=== PATIENT | male | born 1970 | race Caucasian/White ===

== ENCOUNTER 2023-09-05 22:16 | Emergency (ER) | payer SELFPAY ==
[2023-09-05 22:28] VITALS: RESP 18; BMI 27.3
[2023-09-06] MEDS ORDERED: ACETAMINOPHEN 500 MG TABLET (FP) PO ONE (01:05)
[2023-09-06] MEDS ORDERED: ACETAMINOPHEN 500 MG TABLET (FP) ONE (01:06)
[2023-09-06 02:06] VITALS: TEMP 99.1
[2023-09-06 02:07] VITALS: BP 109/64; PULSE 92
== END 2023-09-06 02:30 | disposition home or self-care (01) ==
LOC: JERFT 22:16 → JER 22:16 → JERFT 09-06 02:30
DX: R68.83 Chills (without fever) (principal); M79.10 Myalgia, unspecified site; R51.9 Headache, unspecified; R09.81 Nasal congestion; J00 Acute nasopharyngitis [common cold]; Z20.822 Contact with and (suspected) exposure to COVID-19
CPT/HCPCS: 0241U-QW; 99283-25

== ENCOUNTER 2023-09-06 14:48 | Inpatient (IN) | payer OTHER ==
[2023-09-06 14:57] VITALS: BMI 23.9
[2023-09-06] MEDS ORDERED: ACETAMINOPHEN 1000 MG/100 ML BAG IVPB ONE (15:41)
[2023-09-06] MEDS ORDERED: VANCOMYCIN 1,000 MG in DEXTROSE 5%-WATER - 250 ML IVPB ONE (15:49)
[2023-09-06] MEDS ORDERED: PIPERACILLIN/TAZOB 4.5 GM 4.5 GM in DEXTROSE 5%-WATER - 100 ML IVPB ONE (15:49)
[2023-09-06] MEDS ORDERED: ACETAMINOPHEN INJECTION 100 ML IVPB ONE (15:55)
[2023-09-06] MEDS ORDERED: SODIUM CHLORIDE 0.9% 500 ML INFUS.BAG IV ONE ×2 (16:04→20:16)
[2023-09-06] MEDS ORDERED: PIPERACILLIN/TAZOB 4.5 GM 4.5 GM/100 ML BAG IVPB ONE (16:08)
[2023-09-06 16:11] LABS: BASO % 0.2 % (0-2.0); EOS % 0.2 % (0-4.5); HEMATOCRIT 45.5 % (35.4-49); HEMOGLOBIN 15.4 GM/dL (11.7-16.9); LYMPH % 13.2 % (8-40); MCH 30.8 pg (25.7-33.7); MCHC 33.9 g/dl (32.0-35.9); MEAN CELL VOLUME 90.7 fl (80-96); MEAN PLT VOLUME 7.1 fl (7.5-11.1); MONO % 0.7 % (3.8-10.2); NEUT % 85.7 % (42.8-82.8); PLATELET COUNT 178 10^3/uL (134-434); RBC 5.01 M/mm3 (4.00-5.60); RDW 13.5 % (11.9-15.9)
[2023-09-06 16:12] LABS: VENOUS BASE EXCESS -1.5 mmol/L (-2-2); VENOUS O2 SATURATION 63.9 % (70-80); VENOUS PCO2 42.2 mmHg (38-52); VENOUS PH 7.37 (7.310-7.410)
[2023-09-06 16:19] LABS: INR 1.26 (0.83-1.09); PROTHROMBIN TIME (PATIENT) 14.6 SEC (9.7-13.0)
[2023-09-06 16:21] LABS: ACTIVATED PTT 25.8 SECONDS (25.2-36.5)
[2023-09-06 16:29] LABS: CHLORIDE 102 mmol/L (98-107); POTASSIUM 3.6 mmol/L (3.5-5.1); SODIUM 138 mmol/L (136-145)
[2023-09-06 16:31] LABS: CALCIUM 9.5 mg/dL (8.5-10.1)
[2023-09-06 16:32] LABS: ALBUMIN 3.8 g/dl (3.4-5.0); ANION GAP 11 mmol/L (4-13); BLOOD UREA NITROGEN 16.2 mg/dL (7-18); CO2 25 mmol/L (21-32); GLUCOSE,RANDOM 120 mg/dL (74-106)
[2023-09-06 16:35] LABS: CREATININE 1.8 mg/dL (0.55-1.3); SGOT/AST 70 U/L (15-37); SGPT/ALT 65 U/L (13-61)
[2023-09-06 16:37] LABS: BILIRUBIN,TOTAL 1.5 mg/dL (0.2-1); TOT PROT 8.2 g/dl (6.4-8.2)
[2023-09-06 16:38] LABS: ALK PHOS 135 U/L (45-117)
[2023-09-06 16:40] LABS: N-TERMINAL BNP 193.1 pg/ml (5-125)
[2023-09-06 16:42] LABS: LACTIC ACID 4.8 mmol/L (0.4-2.0)
[2023-09-06] MEDS ORDERED: VANCOMYCIN 1 GRAM (PRE-DOCKED) 1,000 MG/250 ML BAG IVPB ONE (16:48)
[2023-09-06 19:10] LABS: URINE APPEARANCE CLEAR; URINE BILIRUBIN NEGATIVE (NEGATIVE); URINE COLOR YELLOW; URINE GLUCOSE (UA) NEGATIVE (NEGATIVE); URINE KETONE NEGATIVE (NEGATIVE); URINE LEUK ESTERASE NEGATIVE (NEGATIVE); URINE NITRITE NEGATIVE (NEGATIVE); URINE PROTEIN TRACE (NEGATIVE)
[2023-09-07] MEDS: SODIUM CHLORIDE 1,000 ML IV SCH ×2 (02:44→11:39)
[2023-09-07] MEDS ORDERED: HEPARIN NA (PORCINE) 5,000 UNITS/ML 1ML VIAL ONE (05:05)
[2023-09-07] MEDS ORDERED: VANCOMYCIN 1 GRAM (PRE-DOCKED) 1,000 MG/250 ML BAG IVPB ONE ×2 (05:05→15:49)
[2023-09-07] MEDS: VANCOMYCIN 1 GRAM (PRE-DOCKED) 1,000 MG/250 ML BAG IVPB SCH ×2 (05:21→19:13)
[2023-09-07] MEDS ORDERED: HEPARIN NA (PORCINE) 5,000 UNITS/ML 1ML VIAL SQ SCH (06:00)
[2023-09-07 07:06] LABS: HEMATOCRIT 36.2 % (35.4-49); HEMOGLOBIN 12.4 GM/dL (11.7-16.9); MCHC 34.3 g/dl (32.0-35.9); MEAN CELL VOLUME 90.3 fl (80-96); MEAN PLT VOLUME 7.6 fl (7.5-11.1); PLATELET COUNT 130 10^3/uL (134-434); RBC 4.01 M/mm3 (4.00-5.60); RDW 13.4 % (11.9-15.9)
[2023-09-07 07:28] LABS: POTASSIUM 3.4 mmol/L (3.5-5.1)
[2023-09-07 07:31] LABS: BLOOD UREA NITROGEN 15.6 mg/dL (7-18)
[2023-09-07 07:35] LABS: CREATININE 0.9 mg/dL (0.55-1.3)
[2023-09-07 07:37] LABS: BILIRUBIN,TOTAL 1.3 mg/dL (0.2-1)
[2023-09-07 07:41] LABS: ALBUMIN 2.8 g/dl (3.4-5.0); CALCIUM 7.7 mg/dL (8.5-10.1); TOT PROT 5.8 g/dl (6.4-8.2)
[2023-09-07 10:13] LABS: BILIRUBIN,DIRECT 0.6 mg/dL (0.0-0.2)
[2023-09-07] MEDS ORDERED: ACETAMINOPHEN 325 MG TABLET (FP) ONE ×2 (11:06→16:57)
[2023-09-07] MEDS: ACETAMINOPHEN 325 MG TABLET (FP) PO PRN ×3 (11:08→21:39)
[2023-09-07 12:34] LABS: HIV INTERPRETATION NEGATIVE (NEGATIVE)
[2023-09-07 16:49] LABS: OPIATES, URI NEGATIVE (NEGATIVE)
[2023-09-07 16:50] LABS: PHENCYCLIDINE,URINE NEGATIVE (NEGATIVE); URINE BARBITURATES NEGATIVE (NEGATIVE)
[2023-09-07 16:51] LABS: METHADONE, UR NEGATIVE (NEGATIVE); URINE BENZODIAZEPINES NEGATIVE (NEGATIVE)
[2023-09-07 17:25] LABS: COCAINE, UR NEGATIVE (NEGATIVE); URINE AMPHETAMINES NEGATIVE (NEGATIVE)
[2023-09-07] MEDS ORDERED: VANCOMYCIN/WATER FOR INJ (PEG) 1,000 MG/200 ML BAG IVPB SCH (19:00)
[2023-09-07] MEDS: ENOXAPARIN NA (PORCINE) 40 MG/0.4 ML DISP.SYRIN SQ SCH (19:13)
[2023-09-07] MEDS ORDERED: KETOROLAC TROMETHAMINE 15 MG/ML VIAL IVPUSH ONE (19:50)
[2023-09-07] MEDS ORDERED: PIPERACILLIN/TAZOB 4.5 GM 4.5 GM in DEXTROSE 5%-WATER 100 ML IVPB SCH ×2 (21:00→22:15)
[2023-09-08] MEDS: PIPERACILLIN/TAZOB 3.375 GM 3.375 GM in DEXTROSE 5%-WATER - 50 ML IVPB SCH ×3 (01:18→17:42)
[2023-09-08] MEDS ORDERED: VANCOMYCIN 1 GRAM (PRE-DOCKED) 1,000 MG/250 ML BAG IVPB SCH (05:00)
[2023-09-08] MEDS: ACETAMINOPHEN 325 MG TABLET (FP) PO PRN (08:56)
[2023-09-08 09:34] LABS: INR 1.16 (0.83-1.09); PROTHROMBIN TIME (PATIENT) 13.4 SEC (9.7-13.0)
[2023-09-08 09:52] LABS: ALBUMIN 2.4 g/dl (3.4-5.0)
[2023-09-08 09:54] LABS: BILIRUBIN,TOTAL 1.6 mg/dL (0.2-1); TOT PROT 5.6 g/dl (6.4-8.2)
[2023-09-08 09:55] LABS: BILIRUBIN,DIRECT 1.1 mg/dL (0.0-0.2)
[2023-09-08 11:00] LABS: EOS % 0.9 % (0-4.5); HEMATOCRIT 35.9 % (35.4-49); LYMPH % 7.8 % (8-40); MCH 30.7 pg (25.7-33.7); MCHC 33.4 g/dl (32.0-35.9); MEAN PLT VOLUME 8.3 fl (7.5-11.1); MONO % 3.8 % (3.8-10.2); NEUT % 87.5 % (42.8-82.8); PLATELET COUNT 106 10^3/uL (134-434); RBC 3.91 M/mm3 (4.00-5.60); RDW 13.6 % (11.9-15.9); WHITE BLOOD COUNT 8.7 K/mm3 (4.0-10.0)
[2023-09-08 11:12] LABS: POTASSIUM 3.4 mmol/L (3.5-5.1)
[2023-09-08 11:15] LABS: CALCIUM 7.5 mg/dL (8.5-10.1)
[2023-09-08 11:16] LABS: MAGNESIUM 2.2 mg/dL (1.8-2.4)
[2023-09-08 11:19] LABS: CREATININE 1.1 mg/dL (0.55-1.3); PHOSPHOROUS 1.8 mg/dL (2.5-4.9)
[2023-09-08] MEDS: ENOXAPARIN NA (PORCINE) 40 MG/0.4 ML DISP.SYRIN SQ SCH (13:26)
[2023-09-08] MEDS: SODIUM CHLORIDE 1,000 ML IV SCH (13:31)
[2023-09-08] MEDS ORDERED: ACETAMINOPHEN 325 MG TABLET (FP) PO PRN (16:20)
[2023-09-08] MEDS: ACETAMINOPHEN 1000 MG/100 ML BAG IVPB PRN (17:42)
[2023-09-08] MEDS ORDERED: VANCOMYCIN/WATER FOR INJ (PEG) 1,000 MG/200 ML BAG IVPB SCH ×2 (19:00)
[2023-09-08] MEDS: MELATONIN 1 MG TABLET PO SCH (22:07)
[2023-09-09] MEDS: PIPERACILLIN/TAZOB 3.375 GM 3.375 GM in DEXTROSE 5%-WATER - 50 ML IVPB SCH ×3 (01:46→17:30)
[2023-09-09 08:59] LABS: INR 1.02 (0.83-1.09); PROTHROMBIN TIME (PATIENT) 11.8 SEC (9.7-13.0)
[2023-09-09 09:01] LABS: BASO % 0.2 % (0-2.0); EOS % 0.1 % (0-4.5); HEMATOCRIT 36.5 % (35.4-49); HEMOGLOBIN 12.3 GM/dL (11.7-16.9); LYMPH % 13.2 % (8-40); MCH 30.4 pg (25.7-33.7); MCHC 33.7 g/dl (32.0-35.9); MEAN CELL VOLUME 90.3 fl (80-96); MEAN PLT VOLUME 8.2 fl (7.5-11.1); NEUT % 81.5 % (42.8-82.8); PLATELET COUNT 127 10^3/uL (134-434); RBC 4.04 M/mm3 (4.00-5.60); RDW 13.4 % (11.9-15.9); WHITE BLOOD COUNT 7.9 K/mm3 (4.0-10.0)
[2023-09-09 09:12] LABS: POTASSIUM 3.2 mmol/L (3.5-5.1)
[2023-09-09 09:19] LABS: CALCIUM 8.2 mg/dL (8.5-10.1)
[2023-09-09 09:20] LABS: ALBUMIN 2.7 g/dl (3.4-5.0); BLOOD UREA NITROGEN 14.5 mg/dL (7-18)
[2023-09-09 09:23] LABS: BILIRUBIN,DIRECT 1.3 mg/dL (0.0-0.2); CREATININE 0.8 mg/dL (0.55-1.3)
[2023-09-09 09:25] LABS: TOT PROT 6.2 g/dl (6.4-8.2)
[2023-09-09] MEDS: ACETAMINOPHEN 1000 MG/100 ML BAG IVPB PRN ×2 (10:23→18:27)
[2023-09-09] MEDS: ENOXAPARIN NA (PORCINE) 40 MG/0.4 ML DISP.SYRIN SQ SCH (10:24)
[2023-09-09] MEDS: SODIUM CHLORIDE 1,000 ML IV SCH (17:29)
[2023-09-09] MEDS: POTASSIUM CHLORIDE TABS 20 MEQ TABLET.ER (FP) PO SCH (22:30)
[2023-09-09] MEDS: MELATONIN 1 MG TABLET PO SCH (22:30)
[2023-09-10] MEDS: PIPERACILLIN/TAZOB 3.375 GM 3.375 GM in DEXTROSE 5%-WATER - 50 ML IVPB SCH ×3 (03:09→17:10)
[2023-09-10] MEDS: SODIUM CHLORIDE 1,000 ML IV SCH ×3 (03:10→16:35)
[2023-09-10] MEDS: ACETAMINOPHEN 1000 MG/100 ML BAG IVPB PRN (03:39)
[2023-09-10 09:11] LABS: BASO % 0.2 % (0-2.0); EOS % 0.3 % (0-4.5); HEMATOCRIT 35.8 % (35.4-49); HEMOGLOBIN 12.1 GM/dL (11.7-16.9); LYMPH % 11.7 % (8-40); MCH 30.4 pg (25.7-33.7); MCHC 33.9 g/dl (32.0-35.9); MEAN CELL VOLUME 89.7 fl (80-96); MEAN PLT VOLUME 7.7 fl (7.5-11.1); MONO % 8.4 % (3.8-10.2); NEUT % 79.4 % (42.8-82.8); PLATELET COUNT 137 10^3/uL (134-434); RBC 3.99 M/mm3 (4.00-5.60); RDW 13.3 % (11.9-15.9); WHITE BLOOD COUNT 9.7 K/mm3 (4.0-10.0)
[2023-09-10 09:19] LABS: INR 1.04 (0.83-1.09); PROTHROMBIN TIME (PATIENT) 12.1 SEC (9.7-13.0)
[2023-09-10 09:35] LABS: POTASSIUM 3.4 mmol/L (3.5-5.1)
[2023-09-10 09:42] LABS: CALCIUM 7.3 mg/dL (8.5-10.1)
[2023-09-10 09:43] LABS: ALBUMIN 2.3 g/dl (3.4-5.0); BLOOD UREA NITROGEN 9.3 mg/dL (7-18)
[2023-09-10 09:46] LABS: BILIRUBIN,DIRECT 0.7 mg/dL (0.0-0.2); CREATININE 0.8 mg/dL (0.55-1.3)
[2023-09-10 09:47] LABS: BILIRUBIN,TOTAL 1.3 mg/dL (0.2-1)
[2023-09-10 09:48] LABS: TOT PROT 5.6 g/dl (6.4-8.2)
[2023-09-10] MEDS: ENOXAPARIN NA (PORCINE) 40 MG/0.4 ML DISP.SYRIN SQ SCH (12:07)
[2023-09-10] MEDS: POTASSIUM CHLORIDE TABS 20 MEQ TABLET.ER (FP) PO SCH ×2 (12:08→21:37)
[2023-09-10] MEDS ORDERED: ACETAMINOPHEN 1000 MG/100 ML BAG IVPB ONE (13:45)
[2023-09-10] MEDS: MELATONIN 1 MG TABLET PO SCH (21:38)
[2023-09-11] MEDS: PIPERACILLIN/TAZOB 3.375 GM 3.375 GM in DEXTROSE 5%-WATER - 50 ML IVPB SCH ×3 (01:04→17:55)
[2023-09-11] MEDS: SODIUM CHLORIDE 1,000 ML IV SCH ×2 (05:31→16:26)
[2023-09-11 09:34] LABS: BASO % 0.3 % (0-2.0); EOS % 0.7 % (0-4.5); HEMATOCRIT 35.5 % (35.4-49); HEMOGLOBIN 12.1 GM/dL (11.7-16.9); LYMPH % 16.9 % (8-40); MCH 30.6 pg (25.7-33.7); MCHC 34.1 g/dl (32.0-35.9); MEAN CELL VOLUME 89.8 fl (80-96); MONO % 8.8 % (3.8-10.2); NEUT % 73.3 % (42.8-82.8); PLATELET COUNT 170 10^3/uL (134-434); RBC 3.95 M/mm3 (4.00-5.60); RDW 13.6 % (11.9-15.9)
[2023-09-11 09:39] LABS: INR 1.09 (0.83-1.09); PROTHROMBIN TIME (PATIENT) 12.6 SEC (9.7-13.0)
[2023-09-11 09:54] LABS: POTASSIUM 3.3 mmol/L (3.5-5.1)
[2023-09-11 09:57] LABS: CALCIUM 7.2 mg/dL (8.5-10.1)
[2023-09-11 09:58] LABS: ALBUMIN 2.2 g/dl (3.4-5.0); BLOOD UREA NITROGEN 8.8 mg/dL (7-18)
[2023-09-11 10:00] LABS: BILIRUBIN,DIRECT 0.4 mg/dL (0.0-0.2)
[2023-09-11 10:01] LABS: CREATININE 0.8 mg/dL (0.55-1.3)
[2023-09-11 10:02] LABS: BILIRUBIN,TOTAL 0.8 mg/dL (0.2-1)
[2023-09-11] MEDS: ENOXAPARIN NA (PORCINE) 40 MG/0.4 ML DISP.SYRIN SQ SCH (10:51)
[2023-09-11] MEDS: POTASSIUM CHLORIDE TABS 20 MEQ TABLET.ER (FP) PO SCH ×2 (10:51→21:44)
[2023-09-11] MEDS ORDERED: POTASSIUM CHLORIDE ORAL LIQUID 20 MEQ/15 ML PO ONE (13:45)
[2023-09-11] MEDS: MELATONIN 1 MG TABLET PO SCH (21:44)
[2023-09-12] MEDS: PIPERACILLIN/TAZOB 3.375 GM 3.375 GM in DEXTROSE 5%-WATER - 50 ML IVPB SCH ×2 (01:12→09:36)
[2023-09-12] MEDS: SODIUM CHLORIDE 1,000 ML IV SCH ×2 (07:18→22:17)
[2023-09-12] MEDS ORDERED: BUPIVACAINE HCL/PF 0.25% (2.5MG/ML) 10 ML VIAL ONE (09:13)
[2023-09-12] MEDS ORDERED: cefOXitin SODIUM 2 GM VIAL (RESTRICTED TO ID) IVPB ONE (09:33)
[2023-09-12] MEDS: ENOXAPARIN NA (PORCINE) 40 MG/0.4 ML DISP.SYRIN SQ SCH (09:36)
[2023-09-12] MEDS: POTASSIUM CHLORIDE TABS 20 MEQ TABLET.ER (FP) PO SCH ×2 (09:36→22:15)
[2023-09-12] MEDS ORDERED: SUGAMMADEX SODIUM 200 MG/2 ML VIAL ONE (10:14)
[2023-09-12] MEDS ORDERED: PROPOFOL 20 ML ONE (10:14)
[2023-09-12] MEDS ORDERED: LIDOCAINE HCL/PF 2% SDV 5ML VIAL ONE (10:15)
[2023-09-12] MEDS ORDERED: ROCURONIUM BROMIDE 50 MG/5 ML SYRINGE ONE (10:15)
[2023-09-12] MEDS ORDERED: ONDANSETRON 4 MG/2 ML VIAL ONE (10:15)
[2023-09-12] MEDS ORDERED: DEXAMETHASONE SOD PHOSPHATE 4 MG/1 ML VIAL ONE (10:15)
[2023-09-12] MEDS ORDERED: MIDAZOLAM HCL 2 MG/2 ML SINGLE DOSE VIAL ONE (10:15)
[2023-09-12 10:28] LABS: HEMATOCRIT 36.3 % (35.4-49); HEMOGLOBIN 12.5 GM/dL (11.7-16.9); MCH 30.9 pg (25.7-33.7); MCHC 34.5 g/dl (32.0-35.9); MEAN CELL VOLUME 89.6 fl (80-96); MEAN PLT VOLUME 7.6 fl (7.5-11.1); PLATELET COUNT 274 10^3/uL (134-434); RBC 4.05 M/mm3 (4.00-5.60); RDW 13.6 % (11.9-15.9); WHITE BLOOD COUNT 8.3 K/mm3 (4.0-10.0)
[2023-09-12] MEDS ORDERED: PIPERACILLIN/TAZOBACTAM 3.375 GM VIAL IVPB ONE (10:29)
[2023-09-12 10:31] LABS: INR 1.12 (0.83-1.09)
[2023-09-12] MEDS ORDERED: KETOROLAC TROMETHAMINE 30 MG/1 ML VIAL ONE (10:46)
[2023-09-12] MEDS ORDERED: BUPIVACAINE HCL/PF 0.25% (2.5MG/ML) 10 ML VIAL IJ ONE ×2 (10:48)
[2023-09-12 10:55] LABS: ANISOCYTOSIS 0; MACROCYTOSIS 0
[2023-09-12 11:24] LABS: POTASSIUM 3.9 mmol/L (3.5-5.1)
[2023-09-12] MEDS ORDERED: ACETAMINOPHEN 1000 MG/100 ML BAG IVPB PRN ×2 (11:48→12:35)
[2023-09-12] MEDS ORDERED: ONDANSETRON 4 MG/2 ML VIAL IVPUSH PRN ×2 (11:49→12:35)
[2023-09-12] MEDS ORDERED: KETOROLAC TROMETHAMINE 15 MG/ML VIAL IVPUSH PRN ×2 (11:59→12:35)
[2023-09-12] MEDS ORDERED: LACTATED RINGERS SOLUTION 1,000 ML IV SCH ×2 (12:00→12:35)
[2023-09-12] MEDS ORDERED: ACETAMINOPHEN 500 MG TABLET (FP) PO PRN ×2 (12:02→12:35)
[2023-09-12 12:28] LABS: ALBUMIN 2.6 g/dl (3.4-5.0); BILIRUBIN,TOTAL 0.6 mg/dL (0.2-1); BLOOD UREA NITROGEN 10.3 mg/dL (7-18); CALCIUM 8.2 mg/dL (8.5-10.1); CREATININE 0.8 mg/dL (0.55-1.3); MAGNESIUM 2.3 mg/dL (1.8-2.4); TOT PROT 6.5 g/dl (6.4-8.2)
[2023-09-12] MEDS: MELATONIN 1 MG TABLET PO SCH (22:15)
[2023-09-12] MEDS: metroNIDAZOLE 250 MG TABLET PO SCH (22:56)
[2023-09-13] MEDS: metroNIDAZOLE 250 MG TABLET PO SCH ×3 (05:18→22:27)
[2023-09-13] MEDS: SODIUM CHLORIDE 1,000 ML IV SCH ×3 (05:19→18:43)
[2023-09-13 09:06] LABS: BASO % 0.4 % (0-2.0); EOS % 0.4 % (0-4.5); HEMATOCRIT 34.3 % (35.4-49); HEMOGLOBIN 11.5 GM/dL (11.7-16.9); LYMPH % 23.7 % (8-40); MCH 30.5 pg (25.7-33.7); MCHC 33.7 g/dl (32.0-35.9); MEAN CELL VOLUME 90.6 fl (80-96); MEAN PLT VOLUME 7.5 fl (7.5-11.1); MONO % 9.3 % (3.8-10.2); NEUT % 66.2 % (42.8-82.8); PLATELET COUNT 339 10^3/uL (134-434); RBC 3.79 M/mm3 (4.00-5.60); RDW 13.7 % (11.9-15.9); WHITE BLOOD COUNT 9.8 K/mm3 (4.0-10.0)
[2023-09-13 09:39] LABS: POTASSIUM 4.3 mmol/L (3.5-5.1)
[2023-09-13 09:45] LABS: CALCIUM 7.6 mg/dL (8.5-10.1)
[2023-09-13 09:46] LABS: ALBUMIN 2.4 g/dl (3.4-5.0); BLOOD UREA NITROGEN 13.3 mg/dL (7-18)
[2023-09-13 09:48] LABS: MAGNESIUM 2.1 mg/dL (1.8-2.4)
[2023-09-13 09:49] LABS: CREATININE 0.7 mg/dL (0.55-1.3)
[2023-09-13 09:50] LABS: BILIRUBIN,TOTAL 0.6 mg/dL (0.2-1); TOT PROT 6.5 g/dl (6.4-8.2)
[2023-09-13] MEDS: ENOXAPARIN NA (PORCINE) 40 MG/0.4 ML DISP.SYRIN SQ SCH (10:06)
[2023-09-13] MEDS: POTASSIUM CHLORIDE TABS 20 MEQ TABLET.ER (FP) PO SCH ×2 (10:06→22:27)
[2023-09-13] MEDS: MELATONIN 1 MG TABLET PO SCH (22:27)
[2023-09-14] MEDS: metroNIDAZOLE 250 MG TABLET PO SCH (06:36)
[2023-09-14] MEDS: SODIUM CHLORIDE 1,000 ML IV SCH (06:36)
[2023-09-14 09:05] LABS: BASO % 0.3 % (0-2.0); EOS % 1.1 % (0-4.5); HEMATOCRIT 38.7 % (35.4-49); LYMPH % 29.4 % (8-40); MCH 30.5 pg (25.7-33.7); MCHC 33.7 g/dl (32.0-35.9); MEAN CELL VOLUME 90.6 fl (80-96); MEAN PLT VOLUME 7.1 fl (7.5-11.1); NEUT % 63.2 % (42.8-82.8); PLATELET COUNT 479 10^3/uL (134-434); RBC 4.28 M/mm3 (4.00-5.60); RDW 13.8 % (11.9-15.9); WHITE BLOOD COUNT 7.6 K/mm3 (4.0-10.0)
[2023-09-14 09:25] LABS: POTASSIUM 4.4 mmol/L (3.5-5.1)
[2023-09-14 09:35] LABS: CALCIUM 8.4 mg/dL (8.5-10.1)
[2023-09-14 09:36] LABS: ALBUMIN 2.8 g/dl (3.4-5.0); BLOOD UREA NITROGEN 11.1 mg/dL (7-18); MAGNESIUM 2.1 mg/dL (1.8-2.4)
[2023-09-14 09:39] LABS: CREATININE 0.9 mg/dL (0.55-1.3)
[2023-09-14 09:40] LABS: BILIRUBIN,TOTAL 0.6 mg/dL (0.2-1); TOT PROT 7.4 g/dl (6.4-8.2)
[2023-09-14] MEDS: ENOXAPARIN NA (PORCINE) 40 MG/0.4 ML DISP.SYRIN SQ SCH (10:46)
[2023-09-14] MEDS: POTASSIUM CHLORIDE TABS 20 MEQ TABLET.ER (FP) PO SCH (10:46)
[2023-09-14 12:14] VITALS: BP 119/76; PULSE 70; RESP 20; TEMP 97.2
== END 2023-09-14 12:50 | disposition home or self-care (01) | DRG 263 ==
LOC: JER 14:48 → JERBED 09-07 00:23 → OBSVTOIN 09-07 10:43 → J7W 09-07 17:55
PROVIDERS: ADMIT Internal Medicine; ATTEND Nurse Practitioner
PROC: 0FT44ZZ Resection of Gallbladder, Percutaneous Endoscopic Approach (ICD-10-PCS; principal; 2023-09-12 11:00)
DX: K80.20 Calculus of gallbladder without cholecystitis without obstruction (principal); K83.09 Other cholangitis; R78.81 Bacteremia; R10.9 Unspecified abdominal pain; R74.01 Elevation of levels of liver transaminase levels; N17.9 Acute kidney failure, unspecified; E87.20 Acidosis, unspecified
CPT/HCPCS: 0241U-QW; 36415; 71045-TC-FY; 71260-TC; 74177-TC; 74181-TC; 76705-TC; 76775-TC; 78226-TC; 80053; 80076; 80307; 81003; 82150; 82248; 82272; 82550; 82553; 82803; 82962; 82977; 83036; 83516; 83605; 83690; 83735; 83880; 83993; 84100; 84484; 85025; 85027; 85610; 85730; 86038; 86140; 86480; 86704; 86803; 86850; 86900; 86901; 87040; 87045; 87046; 87076; 87086; 87186; 87205; 87338; 87340; 87389; 87491; 87517; 87591; 87651; 87661; 87799; 88304-TC; 93005; 93010; 93306-TC; 94660; 94760; 99285-25; A9537; G0378; G0480; J1644; Q9967